=== PATIENT | female | born 1935 | race Caucasian/White ===

== ENCOUNTER 2022-05-17 08:25 | Observation (INO) ==
[2022-05-17 09:15] LABS: Basophils # 0.1 10*3/uL (0.0-0.2); Eosinophils # 0.3 10*3/uL (0.0-0.87); Hematocrit 41.8 VOL% (35.7-47.0); Hemoglobin 13.7 GM/DL (12.0-16.0); Immature Granulocytes % 0.8 %; Immature Granulocytes Absolute 0.07 #; Lymphocytes # 1.3 10*3/uL (1.4-4.0); Lymphocytes % 15.2 % (21.3-54.2); Mean Corpuscular HGB Conc 32.8 GM/DL (32-36); Mean Corpuscular Volume 92.7 FL (87-102); Mean Platelet Volume 13.6 FL (9.6-12.0); Monocytes # 0.8 10*3/uL (0.11-0.8); Monocytes % 9.5 % (1.7-12.7); Neutrophils % 70.5 % (38.7-73.9); Red Blood Count 4.51 MC/CUMM (3.8-5.5); Red Cell Distribution Width 12.6 % (9.3-17.3); White Blood Count 8.3 T/CUMM (4-12)
[2022-05-17 09:16] LABS: Platelet Count 94 T/CUMM (130-400)
[2022-05-17 09:27] LABS: Albumin 3.8 G/DL (3.4-5.0); Calcium 9.8 MG/DL (8.5-10.1); Osmolality,Calculated 281.3 MOS/KG (273-304); Potassium 3.4 MMOL/L (3.5-5.1); Total Protein 7.4 G/DL (6.4-8.2)
[2022-05-17 09:36] LABS: Platelet Estimate Decreased
[2022-05-17] MEDS ORDERED: LABETALOL 20 MG/4 ML SYRINGE IV ONE (09:52)
[2022-05-17] MEDS ORDERED: LABETALOL 100 MG/20 ML VIAL IV STA (09:58)
[2022-05-17] MEDS ORDERED: hydrALAZINE 20 MG/1 ML VIAL IV STA (10:25)
[2022-05-17] MEDS ORDERED: ONDANSETRON ODT 4 MG TABLET PO PRN (10:25)
[2022-05-17] MEDS ORDERED: DOCUSATE/SENNA 50-8.6 MG TABLET PO PRN (10:25)
[2022-05-17] MEDS ORDERED: diphenhydrAMINE CAP 25 MG CAPSULE PO PRN (10:36)
[2022-05-17] MEDS ORDERED: NICOTINE 21 MG/24 HR PATCH TRANSDERM PRN (10:36)
[2022-05-17] MEDS ORDERED: ONDANSETRON 4 MG/2 ML VIAL IV PRN (10:36)
[2022-05-17] MEDS ORDERED: guaiFENesin/DM ER 600-30 MG TABLET PO PRN (10:36)
[2022-05-17] MEDS ORDERED: ACETAMINOPHEN 325 MG TABLET PO PRN (10:36)
[2022-05-17] MEDS ORDERED: ZALEPLON 5 MG CAPSULE PO PRN (10:36)
[2022-05-17] MEDS ORDERED: hydrALAZINE 20 MG/1 ML VIAL IV PRN (10:36)
[2022-05-17] MEDS: ASPIRIN CHEW 81 MG TABLET PO SCH (11:17)
[2022-05-17] MEDS: atenoloL 50 MG TABLET PO SCH (11:19)
[2022-05-17] MEDS: MULTIVITAMIN (OCUVITE) TABLET PO SCH (22:11)
[2022-05-17] MEDS: PANTOPRAZOLE 40 MG TABLET PO SCH (22:11)
[2022-05-18 05:23] LABS: Basophils # 0.1 10*3/uL (0.0-0.2); Basophils % 0.6 % (0.0-0.8); Eosinophils # 0.1 10*3/uL (0.0-0.87); Eosinophils % 1.3 % (0.00-10.9); Hematocrit 36.8 VOL% (35.7-47.0); Immature Granulocytes % 0.6 %; Immature Granulocytes Absolute 0.06 #; Lymphocytes # 1.2 10*3/uL (1.4-4.0); Lymphocytes % 11.6 % (21.3-54.2); Mean Corpuscular HGB Conc 32.6 GM/DL (32-36); Mean Corpuscular Volume 90.9 FL (87-102); Mean Platelet Volume 13.1 FL (9.6-12.0); Monocytes # 1.1 10*3/uL (0.11-0.8); Monocytes % 9.9 % (1.7-12.7); Platelet Count 89 T/CUMM (130-400); Red Blood Count 4.05 MC/CUMM (3.8-5.5); Red Cell Distribution Width 12.7 % (9.3-17.3); White Blood Count 10.6 T/CUMM (4-12)
[2022-05-18 05:40] LABS: Calcium 9.2 MG/DL (8.5-10.1); Potassium 3.1 MMOL/L (3.5-5.1)
[2022-05-18 05:44] LABS: Risk Ratio 4.06; VLDL Cholesterol 19.4 MG/DL
[2022-05-18 05:46] LABS: Platelet Estimate Decreased
[2022-05-18] MEDS ORDERED: LEVOTHYROXINE 50 MCG TABLET PO SCH (06:30)
[2022-05-18] MEDS ORDERED: CYANOCOBALAMIN 500 MCG TABLET PO SCH (09:00)
[2022-05-18] MEDS ORDERED: CHOLECALCIFEROL 400 UNIT TABLET PO SCH (09:00)
[2022-05-18] MEDS: ASPIRIN CHEW 81 MG TABLET PO SCH (09:18)
[2022-05-18] MEDS: MULTIVITAMIN (OCUVITE) TABLET PO SCH (09:18)
[2022-05-18] MEDS: PANTOPRAZOLE 40 MG TABLET PO SCH (09:18)
[2022-05-18] MEDS: atenoloL 50 MG TABLET PO SCH (09:18)
[2022-05-18] MEDS: POTASSIUM CHLORIDE 20 MEQ TABLET PO SCH ×2 (09:19→12:55)
[2022-05-18] MEDS ORDERED: POTASSIUM CHLORIDE 20 MEQ TABLET PO SCH (12:52)
[2022-05-18 16:05] VITALS: BP 164/78
[2022-05-18] MEDS ORDERED: ATORVASTATIN 40 MG TABLET PO SCH (21:00)
== END 2022-05-18 16:05 | disposition home or self-care (01) ==
LOC: N.EDINP 08:25 → N.3E 08:25 → N.ED 08:25 → SUATTDRO 10:36 → N.3E 12:19
PROVIDERS: ADMIT Internal Medicine; ATTEND Internal Medicine